=== PATIENT | male | born 1975 | race Caucasian/White ===

== ENCOUNTER 2018-12-17 11:31 | Outpatient (CLI) | payer BC ==
[2018-12-19 18:57] LABS: BASOPHILS # (AUTO) 0.1 10^3/uL (0.0-0.1); BASOPHILS % (AUTO) 1.3 %; EOSINOPHILS # (AUTO) 0.8 10^3/uL (0.0-0.7); HGB - HEMOGLOBIN 15.2 g/dL (14.0-18.0); LYMPHOCYTES # (AUTO) 1.9 10^3/uL (1.5-3.5); LYMPHOCYTES % (AUTO) 38.1 %; MEAN CORPUSCULAR VOLUME 90.8 fL (80.0-94.0); MEAN PLATELET VOLUME 7.7 fL (7.4-11.4); MONOCYTES # (AUTO) 0.4 10^3/uL (0.0-1.0); MONOCYTES % (AUTO) 8.7 %; NEUTROPHILS # (AUTO) 1.7 10^3/uL (1.5-6.6); NEUTROPHILS % (AUTO) 34.9 %; PLT - PLATELET COUNT 223 10^3/uL (130-450); RED BLOOD COUNT 5.07 10^6/uL (4.70-6.10); RED CELL DISTRIBUTION WIDTH 14.3 % (12.0-15.0); WHITE BLOOD COUNT 4.9 x10^3/uL (4.8-10.8)
[2018-12-19 19:14] LABS: ALBUMIN 4.6 g/dL (3.2-5.5); ALBUMIN/GLOBULIN RATIO 1.6 (1.0-2.2); ALKALINE PHOSPHATASE 63 IU/L (42-121); ALT ALANINE AMINOTRANSFERASE 54 IU/L (10-60); AST ASPARTATE AMINOTRANSFERASE 40 IU/L (10-42); BILIRUBIN,TOTAL 0.6 mg/dL (0.2-1.0); BUN - BLOOD UREA NITROGEN 10 mg/dL (6-20); CALCIUM 9.5 mg/dL (8.5-10.3); CARBON DIOXIDE - CO2 25 mmol/L (21-32); CHLORIDE 103 mmol/L (101-111); CHOL/HDL RATIO 2.8 (<5.0); CHOLESTEROL 176 mg/dL; CREATININE 0.7 mg/dL (0.6-1.2); GFR - MDRD 123 (>89); GLUCOSE 79 mg/dL (70-100); HDL CHOLESTEROL 63 mg/dL; LDL CHOLESTEROL,CALCULATED 102 mg/dL; LDL/HDL RATIO 1.6 (<3.6); SODIUM 140 mmol/L (135-145); TOTAL PROTEIN 7.4 g/dL (6.7-8.2); VLDL CHOLESTEROL 11 mg/dL
== END 2018-12-17 23:59 | disposition home or self-care (01) ==
LOC: LAB.WCP 11:31
PROVIDERS: ATTEND Nurse Practitioner
DX: I10 Essential (primary) hypertension (principal); Z13.29 Encounter for screening for other suspected endocrine disorder; Z13.228 Encounter for screening for other metabolic disorders
CPT/HCPCS: 36415; 80053; 80061; 83721; 84443; 85025

== ENCOUNTER 2020-10-29 21:52 | Outpatient (CLI) | payer SELFPAY | END 2020-10-29 21:53 | disposition EMS.NT | LOC: EMS 21:52 | DX: S09.90XA Unspecified injury of head, initial encounter (principal); W19.XXXA Unspecified fall, initial encounter ==

== ENCOUNTER 2022-07-26 11:14 | Outpatient (CLI) | payer BC | END 2022-07-26 11:15 | disposition critical access hospital (66) | LOC: EMS 11:14 | DX: R55 Syncope and collapse (principal); R00.1 Bradycardia, unspecified | CPT/HCPCS: A0425; A0427 ==

== ENCOUNTER 2022-07-26 11:29 | Emergency (ER) | payer BC ==
[2022-07-26] MEDS ORDERED: SODIUM CHLORIDE 0.9% 1,000 ML IV STA (11:36)
--- NOTE | 2022-07-26 11:43 | ED Physician Documentation ---
History of Present Illness - Stated complaint Stated Complaint: SYNCOPAL EPISODE - Chief complaint Chief Complaint: Cardiac - History obtained from History obtained from: Patient - Additonal information Additional information: Patient is a 46-year-old presenting for evaluation after near syncopal event. He has recently been ill with subjective fevers and nonproductive cough and was at [facility] in the cold medication I will looking for an [id number] medication. He states he started to feel lightheaded and became diaphoretic.When EMS arrived he was found to have a heart rate in the 30s and systolic blood pressure in the 60s. They started an IV and administered 1 mg of atropine and IV fluids. He had improvement in his heart rate as well as his blood pressure and his symptoms have resolved. He was started on a new antihypertensive in April but he is unsure of the name.He denies ever having chest pain or difficulty breathing. He has had recent diarrhea but no vomiting. 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 Patient is on Coreg 6.25 twice daily, lisinopril 10 mg daily, atorvastatin, baby aspirin, Imitrex as needed for migraines.He has taken his Coreg and lisinopril already today. Review of Systems Constitutional: denies: Fever Cardiac: denies: Chest pain / pressure Respiratory: reports: Cough. denies: Dyspnea GI: denies: Abdominal Pain Musculoskeletal: denies: Back pain Neurologic: denies: Headache PD PAST MEDICAL HISTORY - Present Medications Home Medications: Ambulatory Orders Medication Instructions Recorded Confirmed Aspirin EC [Ecotrin] 81 mg PO DAILY 07/26/22 07/26/22 Atorvastatin [Lipitor] 20 mg PO QPM 07/26/22 07/26/22 Carvedilol [Coreg] 6.25 mg PO BID 07/26/22 07/26/22 Lisinopril [Zestril] 10 mg PO DAILY 07/26/22 07/26/22 Sumatriptan Succinate [Imitrex] 50 mg PO DAILY PRN 07/26/22 07/26/22 - Allergies Allergies/Adverse Reactions: Allergies Allergy/AdvReac Type Severity Reaction Status Date / Time No Known Drug Allergies Allergy Verified 07/26/22 11:36 PD ED PE NORMAL - General General: Alert and oriented X 3, No acute distress, Well developed/nourished - HEENT HEENT: Atraumatic - Neck Neck: Supple, no meningeal sign - Cardiac Cardiac: Other (Bradycardic, regular rhythm) - Respiratory Respiratory: No respiratory distress, Clear bilaterally - Abdomen Abdomen: Soft, Non tender, Non distended - Derm Derm: Warm and dry - Extremities Extremities: No edema, No calf tenderness / cord - Neuro Neuro: Alert and oriented X 3, No motor deficit, Normal speech Results - Vitals Vitals: Vital Signs - 24 hr 07/26/22 07/26/22 07/26/22 11:37 13:10 14:00 Temperature 37.2 C Heart Rate 52 L 51 L 54 L Heart Rate [ Sitting] Heart Rate [ Standing] Heart Rate [ Supine] Respiratory 13 20 20 Rate Blood Pressure 92/56 L 112/70 113/68 Blood Pressure [Sitting] Blood Pressure [Standing] Blood Pressure [Supine] O2 Saturation 96 100 100 07/26/22 07/26/22 14:27 16:01 Temperature 37.6 C Heart Rate 61 Heart Rate [ 55 L Sitting] Heart Rate [ 58 L Standing] Heart Rate [ 56 L Supine] Respiratory 12 Rate Blood Pressure 124/87 H Blood Pressure 131/89 H [Sitting] Blood Pressure 130/88 H [Standing] Blood Pressure 122/76 [Supine] O2 Saturation 100 Oxygen O2 Source Room air - EKG (time done) 1134 Rate: Rate (enter#) (52) Rhythm: Sinus bradycardia Intervals: No: Prolonged QT Ischemia: No: ST elevation c/w ischemia - Labs Labs: Laboratory Tests 07/26/22 07/26/22 07/26/22 11:45 11:45 11:50 WBC 4.5 L RBC 4.73 Hgb 14.2 Hct 43.1 MCV 91.1 MCH 30.0 MCHC 32.9 RDW 12.0 Plt Count 150 MPV 9.9 Neut # (Auto) 2.9 Lymph # (Auto) 0.9 L Rock # (Auto) 0.5 Eos # (Auto) 0.1 Baso # (Auto) 0.0 Absolute Nucleated RBC 0.00 Nucleated RBC % 0.0 Sodium 134 L Potassium 3.7 Chloride 100 L Carbon Dioxide 25 Anion Gap 9.0 BUN 12 Creatinine 0.9 Estimated GFR (MDRD) 91 Glucose 101 H Calcium 8.6 Magnesium 2.0 Total Bilirubin 0.9 AST 32 ALT 39 Alkaline Phosphatase 43 Total Protein 6.8 Albumin 4.1 Globulin 2.7 Albumin/Globulin Ratio 1.5 Lipase 40 TSH Nasal Adenovirus (PCR) NOT DETECTED Nasal B. parapertussis DNA (PCR) NOT DETECTED Nasal Coronavir 229E PCR NOT DETECTED Nasal Coronavir HKU1 PCR NOT DETECTED Nasal Coronavir NL63 PCR NOT DETECTED Nasal Coronavir OC43 PCR NOT DETECTED Nasal Enterovir/Rhinovir PCR NOT DETECTED Nasal Influ A H1 2009 PCR DETECTED A Nasal Influenza B PCR NOT DETECTED Nasal Parainfluen 1 PCR NOT DETECTED Nasal Parainfluen 2 PCR NOT DETECTED Nasal Parainfluen 3 PCR NOT DETECTED Nasal Parainfluen 4 PCR NOT DETECTED Nasal RSV (PCR) NOT DETECTED Nasal B.pertussis DNA PCR NOT DETECTED Nasal C.pneumoniae (PCR) NOT DETECTED Dylan Human Metapneumo PCR NOT DETECTED Nasal M.pneumoniae (PCR) NOT DETECTED Nasal SARS-CoV-2 (PCR) NOT DETECTED 07/26/22 13:43 WBC RBC Hgb Hct MCV MCH MCHC RDW Plt Count MPV Neut # (Auto) Lymph # (Auto) Rock # (Auto) Eos # (Auto) Baso # (Auto) Absolute Nucleated RBC Nucleated RBC % Sodium Potassium Chloride Carbon Dioxide Anion Gap BUN Creatinine Estimated GFR (MDRD) Glucose Calcium Magnesium Total Bilirubin AST ALT Alkaline Phosphatase Total Protein Albumin Globulin Albumin/Globulin Ratio Lipase TSH 1.00 Nasal Adenovirus (PCR) Nasal B. parapertussis DNA (PCR) Nasal Coronavir 229E PCR Nasal Coronavir HKU1 PCR Nasal Coronavir NL63 PCR Nasal Coronavir OC43 PCR Nasal Enterovir/Rhinovir PCR Nasal Influ A H1 2009 PCR Nasal Influenza B PCR Nasal Parainfluen 1 PCR Nasal Parainfluen 2 PCR Nasal Parainfluen 3 PCR Nasal Parainfluen 4 PCR Nasal RSV (PCR) Nasal B.pertussis DNA PCR Nasal C.pneumoniae (PCR) Dylan Human Metapneumo PCR Nasal M.pneumoniae (PCR) Nasal SARS-CoV-2 (PCR) PD Medical Decision Making - ED course Complexity details: reviewed results, re-evaluated patient, d/w patient ED course: 6145 - Patient feeling better has not had any recurrence of symptomatic bradycardia, has not required atropine, has been ambulating without any symptoms. I did recommend admission for continued cardiac monitoring and plan to hold his Coreg. If patient does not want to stay in the hospital overnight. He feels comfortable going home as he has not had a reoccurrence of his sym ptoms. Patient presenting for evaluation after an episode of symptomatic bradycardia with near syncope. He did not have chest pain or difficulty breathing.He has recently been started on Coreg. He does have URI symptoms and has tested positive for influenza A. His labs were reviewed without significant findings. He did not require further doses of atropine. His heart rate has remained in the 50s and he appears asymptomatic. He is able to ambulate without any difficulty. I did recommend hospital observation which patient declines and does not want to stay overnight. He was observed for several hours without any recurrence of the bradycardia. I did recommend close follow-up with his primary care doctor. I will stop his Coreg. Patient is counseled on concerning symptoms to return for. Departure - Departure Disposition: 01 Home, Self Care Clinical Impression: Influenza A, Symptomatic bradycardia Condition: Stable Instructions: ED Bradycardia, ED Flu Comments: He had an episode today where your heart rate went too low and the paramedics gave you medications to help with that. The slow heart rate could have been caused by one of your medications called Coreg (carvedilol). Please do not take this medication. I would also hold your other blood pressure medication today. You can continue with the lisinopril tomorrow.I would recommend that you make sure you stay hydrated, get plenty of rest and not do anything exertional for the next several days. Please make sure that you are eating. You do also have influenza A.I would recommend making a follow-up appointment with your primary care doctor to discuss your episode today as well as review your current medications.But anytime you have any worsening symptoms please consider return to the emergency department or calling 911. Discharge Date/Time: 07/26/22 16:15
[2022-07-26 11:52] LABS: BASOPHILS % (AUTO) 0.4 %; EOSINOPHILS # (AUTO) 0.1 10^3/uL (0.0-0.7); EOSINOPHILS % (AUTO) 2.4 %; HCT - HEMATOCRIT 43.1 % (42.0-52.0); HGB - HEMOGLOBIN 14.2 g/dL (14.0-18.0); LYMPHOCYTES # (AUTO) 0.9 10^3/uL (1.5-3.5); LYMPHOCYTES % (AUTO) 20.4 %; MEAN CORPUSCULAR HGB CONC 32.9 g/dL (32.0-36.0); MEAN CORPUSCULAR VOLUME 91.1 fL (80.0-94.0); MEAN PLATELET VOLUME 9.9 fL (7.4-11.4); MONOCYTES # (AUTO) 0.5 10^3/uL (0.0-1.0); MONOCYTES % (AUTO) 11.1 %; NEUTROPHILS # (AUTO) 2.9 10^3/uL (1.5-6.6); NEUTROPHILS % (AUTO) 65.5 %; PLT - PLATELET COUNT 150 10^3/uL (130-450); RED BLOOD COUNT 4.73 10^6/uL (4.70-6.10); WHITE BLOOD COUNT 4.5 x10^3/uL (4.8-10.8)
--- NOTE | 2022-07-26 11:57 | XRAY Report ---
PROCEDURE: Chest 1 View X-Ray INDICATIONS: leena/syncope TECHNIQUE: One view of the chest was acquired. COMPARISON: None. FINDINGS: Surgical changes and devices: None. Lungs and pleura: No pleural effusions or pneumothorax. Lungs are clear. Mediastinum: Mediastinal contours appear normal. Heart size is normal. Bones and chest wall: No suspicious bony lesions. Overlying soft tissues appear unremarkable. IMPRESSION: No acute cardiopulmonary disease. Reviewed by: Kulwinder Rodas MD on 07/26/2022 11:56 AM [facility] Approved by: Kulwinder Rodas MD on 07/26/2022 11:56 AM [facility] Station ID: [id number]
[2022-07-26 12:05] LABS: ALBUMIN 4.1 g/dL (3.2-5.5); ALBUMIN/GLOBULIN RATIO 1.5 (1.0-2.2); BILIRUBIN,TOTAL 0.9 mg/dL (0.2-1.0); CALCIUM 8.6 mg/dL (8.5-10.3); POTASSIUM 3.7 mmol/L (3.5-5.0); TOTAL PROTEIN 6.8 g/dL (6.7-8.2)
[2022-07-26 12:22] LABS: CREATININE 0.9 mg/dL (0.6-1.2)
[2022-07-26 12:59] LABS: B. PARAPERTUSSIS- RESP PCR PAN NOT DETECTED; B. PERTUSSIS- RESP PCR PANEL NOT DETECTED; C. PNEUMONIAE- RESP PCR PANEL NOT DETECTED; CORONAVIRUS 229E-RESP PCR NOT DETECTED; CORONAVIRUS HKU1-RESP PCR NOT DETECTED; CORONAVIRUS NL63-RESP PCR NOT DETECTED; CORONAVIRUS OC43-RESP PCR NOT DETECTED; HUMAN METAPNEUMOVIRUS NOT DETECTED; INFLUENZA A H1 2009- RESP PCR DETECTED; INFLUENZA B - RESP PCR PANEL NOT DETECTED; M. PNEUMONIAE- RESP PCR PANEL NOT DETECTED; PARAINFLUENZA VIRUS 1 NOT DETECTED; PARAINFLUENZA VIRUS 2 NOT DETECTED; PARAINFLUENZA VIRUS 3 NOT DETECTED; PARAINFLUENZA VIRUS 4 NOT DETECTED; RHINOVIRUS/ENTEROVIRUS NOT DETECTED; RSV- RESP PCR PANEL NOT DETECTED; SARS-CoV-2 -RESP PCR PANEL NOT DETECTED
[2022-07-26 16:02] VITALS: BP 124/87
== END 2022-07-26 16:15 | disposition home or self-care (01) ==
LOC: EDUNIT# → ED 11:29
DX: J10.1 Influenza due to other identified influenza virus with other respiratory manifestations (principal); R00.1 Bradycardia, unspecified; I10 Essential (primary) hypertension
CPT/HCPCS: 36415; 80053; 83690; 83735; 84443; 85025; 87633; 93005; 96360; 96361; 99284